=== PATIENT | female | born 1975 | race Caucasian/White ===

== ENCOUNTER → 2017-04-28 | Day surgery (SDC) | payer OTHER ==
[~2017-04-28] MED LIST: HYDROmorphone 2 MG/ML VIAL IV; LIDOCAINE 1% PF 2 ML VIAL. ID; LIDOCAINE 2% 100 MG/5 ML SYRINGE.; MORPHINE SULFATE 4 MG/ML DISP.SYRIN. IV; ONDANSETRON PF 4 MG/2 ML VIAL. IV; PROCHLORPERAZINE 10 MG/2 ML VIAL. IV; PROPOFOL 40 ML IV; fentaNYL PF VIAL 100 MCG/2 ML VIAL IV
[2017-04-28] MEDS: IV RINGERS,LACTATED 1000ML 1,000 ML IV (13:04)
== END | disposition home or self-care (01) ==
LOC: ENDOS 12:30
DX: K64.0 First degree hemorrhoids (principal); K22.2 Esophageal obstruction; K21.0 Gastro-esophageal reflux disease with esophagitis; J45.909 Unspecified asthma, uncomplicated; K44.9 Diaphragmatic hernia without obstruction or gangrene; M19.90 Unspecified osteoarthritis, unspecified site; Z88.1 Allergy status to other antibiotic agents; Z88.8 Allergy status to other drugs, medicaments and biological substances; Z87.39 Personal history of other diseases of the musculoskeletal system and connective tissue; Z90.710 Acquired absence of both cervix and uterus; Z98.51 Tubal ligation status; Z88.2 Allergy status to sulfonamides; Z79.899 Other long term (current) drug therapy
CPT/HCPCS: 43239; 88305; J2704

== ENCOUNTER → 2017-10-19 | Outpatient (CLI) | payer OTHER ==
[2017-04-28 14:02] VITALS: BP 125/85
[~2017-10-19] MED LIST changes: -HYDROmorphone 2 MG/ML VIAL IV; -LIDOCAINE 1% PF 2 ML VIAL. ID; -LIDOCAINE 2% 100 MG/5 ML SYRINGE.; +MELO7.5T29 PO; -MORPHINE SULFATE 4 MG/ML DISP.SYRIN. IV; -ONDANSETRON PF 4 MG/2 ML VIAL. IV; +PRED50TA PO; +PROAIR RESPICL90 MCG IH; -PROCHLORPERAZINE 10 MG/2 ML VIAL. IV; -PROPOFOL 40 ML IV; +TRAM50TA PO; -fentaNYL PF VIAL 100 MCG/2 ML VIAL IV
--- NOTE | 2017-10-21 00:03 | SLEEP ---
DATE OF STUDY: 10/19/2017 SLEEP STUDY ATTENDING PHYSICIAN: Dr. Angie Campa. The patient is 42 years old, who weighs 230 pounds with BMI of 43. The patient's Barre score was 18. The patient underwent sleep study at [facility]. This was a diagnostic study. During the night study, the patient spent 420 minutes in bed and slept for 296 minutes, with a low sleep efficiency of 71%. Sleep latency was 8 minutes with a REM latency of 74 minutes. Overall, sleep architecture showed normal stage I and stage II sleep, increased slow wave and slightly reduced REM sleep, which was 16% of the total sleep time. During the night study, the patient had 16 obstructive apneas, 1 central apnea, no mixed apneas and 73 hypopneas. The patient's apnea-hypopnea index was 18 per hour, supine index 20 per hour and the REM index of 64 per hour. EKG monitoring revealed normal sinus rhythm, average heart rate was 52 beats per minute. No sustained arrhythmias were observed. Nocturnal oximetry study revealed a mean oxygen saturations of 92% with the lowest of 75%. For 41% of time oxygen saturation remained between 80% and 89%. PLMS were not seen. Due to low AHI, the patient did not meet the split-night criteria for CPAP initiation. IMPRESSION: 1. Moderate sleep apnea-hypopnea syndrome with worsening during REM sleep. Total apnea-hypopnea index 18 per hour with a REM apnea-hypopnea index of 64 per hour. 2. Nocturnal hypoxia secondary to obstructive sleep apnea. 3. No clinically significant periodic limb movements. RECOMMENDATIONS: 1. The patient should return to the sleep lab for CPAP titration study. 2. Once optimum CPAP pressure is achieved, then follow up in 4-6 weeks to assess compliance with CPAP and to document clinical improvement. 3. Weight loss is strongly advised. 4. Avoid SOIL [employer]OR depressants. 5. Caution regarding driving until symptoms of sleep apnea have resolved with the use of CPAP. JUAN FRANCISCO CHIRINOS MD DR: DANY/samson JOB#: [id number] / [id number] ANGIE Tang MD
== END | disposition home or self-care (01) ==
LOC: SLPLAB 18:34
PROVIDERS: ATTEND Family Medicine
DX: G47.33 Obstructive sleep apnea (adult) (pediatric) (principal); G47.34 Idiopathic sleep related nonobstructive alveolar hypoventilation; K21.9 Gastro-esophageal reflux disease without esophagitis; J45.909 Unspecified asthma, uncomplicated; Z90.710 Acquired absence of both cervix and uterus; Z88.1 Allergy status to other antibiotic agents; Z88.2 Allergy status to sulfonamides; Z88.8 Allergy status to other drugs, medicaments and biological substances
CPT/HCPCS: 95810

== ENCOUNTER → 2017-11-16 | Outpatient (CLI) | payer OTHER ==
[2017-04-28 14:02] VITALS: BP 125/85
--- NOTE | 2017-11-21 15:30 | SLEEP ---
DATE OF STUDY: ATTENDING PHYSICIAN: Dr. Angie Campa. The patient is a 42-year-old who weighs 230 pounds and has a BMI of 43. The patient had a previous sleep study on 10/19/2017 and was found to have moderate JUDY with worsening during REM sleep. Total AHI 18 per hour with a REM AHI of 64 per hour. The patient also had nocturnal hypoxia. The patient returned for CPAP titration study. During the night study, the patient spent 416 minutes in bed and slept for 398 minutes with a sleep efficiency of 96%. Sleep latency was 7 minutes with a REM latency of 74 minutes. Overall sleep architecture showed normal stage 1 and stage 2 sleep, increased slow wave and normal REM sleep. EKG monitoring revealed normal sinus rhythm, average heart rate was 78 beats per minute. No arrhythmias observed. PLMS were seen at index of 10 per hour and 2 per hour caused EEG arousals. The patient was started on CPAP at 5 cm water and titrated up to 11 cm water. At the final pressure, the patient slept for 80 minutes. The patient had supine as well as REM sleep. The patient's AHI was reduced to 4 per hour and oxygen saturation remained above 88% with one spot desaturation of 86%. The patient used small sized nasal pillows. IMPRESSION: 1. Sleep apnea diagnosed by previous sleep study. 2. Mild periodic limb movements in sleep, which does not need to be treated. RECOMMENDATIONS: 1. CPAP at 11 cm water should be used on a nightly basis. 2. Follow up in 4-6 weeks to assess compliance with CPAP and to document clinical improvement. 3. Weight loss is strongly advised. 4. Avoid B[employer]CH [employer]ATOR depressants. 5. Cautioned regarding driving until symptoms of sleep apnea have resolved with the use of CPAP. 6. The patient used small sized nasal pillows. JUAN FRANCISCO CHIRINOS MD DR: DANY/samson JOB#: [id number] / [id number] ANGIE Tang MD
== END | disposition home or self-care (01) ==
LOC: RT 18:38
PROVIDERS: ATTEND Family Medicine
DX: G47.33 Obstructive sleep apnea (adult) (pediatric) (principal); G47.61 Periodic limb movement disorder
CPT/HCPCS: 95811

== ENCOUNTER → 2018-09-25 | Outpatient (CLI) | payer OTHER ==
[2017-04-28 14:02] VITALS: BP 125/85
--- NOTE | 2018-09-25 10:33 | KCIC ---
Indication:Nonalcoholic fatty liver disease. TECHNIQUE: Grayscale, color Doppler and spectral waveform is of the abdomen obtained. COMPARISON:None FINDINGS: Pancreas within normal limits. IVC within normal limits. No aortic aneurysm. Main portal vein is patent with hepatopedal flow. Liver is mildly enlarged measuring 18 cm in longest dimension with diffuse increased echogenicity and decreased through transmission. No gallstones, pericholecystic fluid or gallbladder wall thickening. CBD measures 4 mm in diameter and is within normal limits. Right kidney measures 10.7 cm in length without hydronephrosis. IMPRESSION: Mild hepatomegaly with hepatic steatosis. No cholelithiasis. Electronically signed by: Nathaniel Lozano DO (09/25/2018 10:30 AM) [facility]
== END | disposition home or self-care (01) ==
LOC: KCIC US 08:47
PROVIDERS: ATTEND Family Medicine
DX: K76.0 Fatty (change of) liver, not elsewhere classified (principal); R16.0 Hepatomegaly, not elsewhere classified
CPT/HCPCS: 76705

== ENCOUNTER → 2018-09-28 | Outpatient (CLI) | payer OTHER ==
[2017-04-28 14:02] VITALS: BP 125/85
--- NOTE | 2018-09-28 11:29 | KCIC ---
Bilateral digital screening mammograms: Reason for examination: Routine screening. Comparison is made to previous study dated 04/05/2011. Interpretation was made with the benefit of CAD. The skin and nipples show no abnormalities. No abnormal axillary lymph nodes are seen. The breast parenchyma shows scattered fibroglandular density. (Breast density: Category B.) There continues to be a small nodule consistent with an intramammary lymph node at the 10:00 C position of the right breast which is stable. There are no new dominant masses, suspicious calcifications or architectural distortions. Impression: No evidence of malignancy. Recommend routine screening. BI-RADS Category 2: Benign. "Our facility is accredited by the [employer] Mammography Program." This patient's information has been entered into a reminder system for the patient to be notified with the results of her examination and a target date for the next mammogram. Electronically signed by: Cora Rodriguez MD (09/28/2018 11:26 AM) [id number]
== END | disposition home or self-care (01) ==
LOC: KCIC MAMMO 09:26
PROVIDERS: ATTEND Family Medicine
DX: Z12.31 Encounter for screening mammogram for malignant neoplasm of breast (principal)
CPT/HCPCS: 77067